=== PATIENT | female | born 1955 | race Caucasian/White ===

== ENCOUNTER 2018-03-23 19:30 | Emergency (ER) | payer SELFPAY ==
[2018-03-23 20:04] VITALS: BP 127/73; PULSE 86; RESP 20; TEMP 97.8; O2SAT 96
--- NOTE | 2018-03-23 20:56 | C.PDOC ---
History Of Present Illness 62 y/o female presents to the ER complaining of right shoulder pain s/p fall earlier today. Patient states that she fell down 3 steps while she was walking on the stairs and she landed on right shoulder. Patient reports that she is not able lift her arm. She notes that she took Advil without relief. She noticed increased bruising throughout the day. She told her daughter who decided to bring her to the ER. Denies having head injury, LOC, weakness and numbness. Time Seen by Provider: 03/23/18 20:27 Chief Complaint (Nursing): Upper Extremity Problem/Injury History Per: Patient, Family History/Exam Limitations: language barrier Onset/Duration Of Symptoms: Hrs Current Symptoms Are (Timing): Still Present Severity: Moderate Past Medical History Reviewed: Historical Data, Nursing Documentation, Vital Signs Vital Signs: Last Vital Signs Temp 97.8 F 03/23/18 19:56 Pulse 86 03/23/18 19:56 Resp 20 03/23/18 19:56 BP 127/73 03/23/18 19:56 Pulse Ox 96 03/23/18 21:30 - Medical History PMH: No Chronic Diseases Surgical History: No Surg Hx Family History: States: No Known Family Hx - Social History Hx Alcohol Use: No Hx Substance Use: No - Immunization History Hx Tetanus Toxoid Vaccination: No Hx Influenza Vaccination: No Hx Pneumococcal Vaccination: No Review Of Systems Except As Marked, All Systems Reviewed And Found Negative. Musculoskeletal: Positive for: Shoulder Pain (right shoulder pain) Neurological: Negative for: Weakness, Numbness Physical Exam - Physical Exam Appears: Non-toxic, No Acute Distress Skin: Normal Color, Warm, Dry, Ecchymosis (moderate ecchymosis to right upper arm) Head: Atraumatic, Normacephalic Eye(s): bilateral: Normal Inspection Nose: Normal Oral Mucosa: Moist Neck: Supple Chest: Symmetrical Extremity: No Normal ROM (unable to adduct right shoulder secondary to pain), Tenderness (tenderness to right upper humerus and shoulder), No Deformity, Swelling (mild swelling to right shoulder) Pulses: Left Radial: Normal, Right Radial: Normal Neurological/Psych: Oriented x3, Normal Speech Gait: Steady ED Course And Treatment O2 Sat by Pulse Oximetry: 96 (RA) Pulse Ox Interpretation: Normal Medical Decision Making Medical Decision Making: Impression: Arm injury s.p fall Plan: Xray of right shoulder Progress: Xray viewed by me and shows comminuted fracture to the humeral head and greater tubercle. Ordered Morphine IM and arm sling to be applied by RN. Consult ortho personal computer network engineer Dr Olivo, paged at [phone] Olivo who requested CT of extremity without contrast and to place patient in shoulder immobilizer. Patient to be discharged and follow up in his office Disposition Counseled Patient/Family Regarding: Studies Performed, Diagnosis, Need For Followup, Rx Given - Disposition Referrals: Donny Olivo MD [Staff Provider] - Disposition: HOME/ ROUTINE Disposition Time: 21:35 Condition: STABLE Additional Instructions: Your xray shows a fracture. It is very important you follow up with orthopedic within 1-4 days. An immobilizer has been applied to support the arm. Take pain medication as needed. Prescriptions: Ibuprofen [Motrin] 1 tab PO TID PRN #30 tab PRN Reason: Pain oxyCODONE/Acetaminophen [Percocet 5/325 mg Tab] 1 tab PO Q8 PRN #20 tab PRN Reason: Pain, Severe (8-10) Instructions: Shoulder Fracture (DC) Forms: [employer] (Lao) - POA Present On Arrival: Falls Or Trauma - Clinical Impression Clinical Impression: Humerus head fracture - PA / TAKE OFF MAN / Resident Statement MD/DO has reviewed & agrees with the documentation as recorded. - Scribe Statement The provider has reviewed the documentation as recorded by the Nurysibe Dena Moore Provider Attestation All medical record entries made by the Scribe were at my direction and personally dictated by me. I have reviewed the chart and agree that the record accurately reflects my personal performance of the history, physical exam, medical decision making, and the department course for this patient. I have also personally directed, reviewed, and agree with the discharge instructions and disposition.
--- NOTE | 2018-03-24 09:29 | RAD ---
Date of service: 03/23/2018 PROCEDURE: Radiographs of the Right Shoulder HISTORY: pain s.p fall on steps COMPARISON: No prior. FINDINGS: BONES: A comminuted humeral fracture involving greater tuberosity and also fracture exit 9 medial anatomical neck suggested. The status of the glenoid fossa is indeterminate there is a bony excrescence noted along the superior aspect series 4, image 1. For this CT right shoulder for fracture mapping recommended JOINTS: Glenohumeral and acromioclavicular minimal osteoarthritis. SOFT TISSUES: Normal. OTHER FINDINGS: None. IMPRESSION: Fractured humerus -as above. Potential fracture involvement of glenoid cannot be excluded given image availableFor this CT right shoulder for fracture mapping recommended Comments: Study marked for PA review .
--- NOTE | 2018-03-24 11:11 | CT ---
Date of service: 03/23/2018 PROCEDURE: CT of the right shoulder. HISTORY: shoulder fracture COMPARISON: Plain radiographs performed the same day. TECHNIQUE: Contiguous axial images of the right shoulder were obtained. Coronal and sagittal reformats were generated. This CT exam was performed using one or more of the following dose reduction techniques: Automated exposure control, adjustment of the mA and/or kV according to patient size, and/or use of iterative reconstruction technique. FINDINGS: BONES: There is diffuse bone demineralization. There is an acute comminuted nondisplaced impacted fracture in the neck of the humerus and also involving greater tuberosity. There is approximately 6 mm lateral distraction of greater tuberosity fracture fragment. Bone alignment is normal. RIGHT SHOULDER JOINT: unremarkable. No dislocation. No degenerative changes. SOFT TISSUES: There is mild periarticular edema and subcutaneous edema. IMPRESSION: Acute comminuted and nondisplaced impacted fracture in the neck of the humerus also involving greater tuberosity with 6 mm lateral displacement of the greater tuberosity fracture fragment. No evidence for dislocation. A preliminary report was provided by [employer] [facility].
== END 2018-03-23 22:00 | disposition home or self-care (01) ==
LOC: C.ER 19:30
DX: S42.291A Other displaced fracture of upper end of right humerus, initial encounter for closed fracture (principal); W10.9XXA Fall (on) (from) unspecified stairs and steps, initial encounter
CPT/HCPCS: 73030; 73200; 96372; 99284; J2270